=== PATIENT | female | born 1990 | race Caucasian/White ===

== ENCOUNTER 2017-05-20 08:58 | Emergency (ER) | payer SELFPAY ==
[~2017-05-20 08:58] MED LIST: Sodium Chloride 0.9% 1,000 ML BAG ONE
[2017-05-20] MEDS ORDERED: Metoclopramide HCl 10 MG/2 ML VIAL ONE (10:00)
[2017-05-20] MEDS ORDERED: Ondansetron HCl/PF 4 MG/2 ML Vial ONE (10:00)
[2017-05-20 10:18] LABS: ALT (SGPT) 6 U/L (8-55); AST (SGOT) 11 U/L (5-34); Albumin 2.9 g/dL (3.5-5.0); Alkaline Phosphatase 71 U/L (40-150); Anion Gap 16 mmol/L (10-20); BUN (Urea Nitrogen) 7 mg/dL (7.0-18.7); Bilirubin, Total 0.3 mg/dL (0.2-1.2); Calc. Creatinine Clearance 0 mL/min (70-130); Calcium 8.7 mg/dL (7.8-10.44); Carbon Dioxide 20 mmol/L (22-29); Chloride 105 mmol/L (98-107); Estimated GFR-MDRD Greater than 90; Globulin 3.2 g/dL (2.4-3.5); Glucose 101 mg/dL (70-105); Potassium 3.7 mmol/L (3.5-5.1); Protein, Total 6.1 g/dL (6.0-8.3); Sodium 137 mmol/L (136-145)
--- NOTE | 2017-05-20 10:20 | RAD ---
PORTABLE CHEST 1 VIEW: Date: 05/20/17 Time: 0953 hours HISTORY: Severe abdominal pain. FINDINGS: Comparison made with exam of 11/01/13. The heart size is normal. The lungs are well expanded without focal areas of consolidation, pneumoth orax, or pleural effusions. IMPRESSION: No acute process. POS: [facility]
[2017-05-20 10:25] LABS: Eosinophils 2 % (0-10); Hemoglobin 12.7 g/dL (12.0-16.0); Lymphocytes 13 % (21-51); MDiff Complete? YES; Mean Corpuscular HGB CONC 34.9 g/dL (32.0-36.0); Mean Corpuscular Volume 91.5 fl (81.0-99.0); Mean Platelet Volume 5.7 fL (7.4-10.4); Monocytes 6 % (0-10); Neutrophil 79 % (42-75); PLT Morphology Comment Appears Adequate; Platelet Count 309 thou/uL (130-400); RBC Distribution Width 12.2 % (11.5-14.5); Red Blood Cell (RBC) Count 3.96 mill/uL (4.20-5.40); White Blood Cell (WBC) Count 11.8 thou/uL (4.8-10.8)
[2017-05-20 10:26] LABS: Lipase Less than 4 U/L (8-78)
[2017-05-20 10:32] LABS: BHCG - Serum Negative (NEGATIVE); Pregs Control Background? CLEAR/WHITE (CLR/WHITE); Pregs Control Bar Appear? YES (CONTROL BAR)
[2017-05-20] MEDS ORDERED: metroNIDAZOLE 500 MG/100 ML BAG ONE (10:37)
[2017-05-20] MEDS ORDERED: Clindamycin/D5W 600 mg/50 ml Premix Bag ONE (11:17)
[2017-05-20 12:05] LABS: Acetaminophen Less than 6.0 mcg/mL (10.0-30.0); Alcohol Less than 10 mg/dL (Less than 10); Salicylate Less than 8.0 mg/dL (15.0-30.0)
[2017-05-20 12:10] LABS: Cocaine Metabolite Screen Not Detected (NotDetected); Phencyclidine (PCP) Not Detected (NotDetected); THC/Cannabinoid Screen Detected (NotDetected)
[2017-05-20 12:11] LABS: Amphetamine Detected (NotDetected); Barbiturates Screen Not Detected (NotDetected); Benzodiazepine Screen Detected (NotDetected); Medtox Control Line Valid? VALID (VALID); Methadone Not Detected (NotDetected); Methamphetamine Detected (NotDetected); Opiate Screen Detected (NotDetected); Oxycodone Screen Not Detected (NotDetected); Tricyclic Screen Not Detected (NotDetected)
[2017-05-20 13:09] LABS: Clarity Hazy (Clear); Leukocyte Moderate (Negative); Nitrite Negative (Negative); Protein, Urine (Dipstick) Negative (Neg-Trace)
[2017-05-20 13:10] LABS: Bilirubin Negative (Negative); Blood, Urine Trace (Negative); Glucose, Urine (Dipstick) Negative (Negative); Urobilinogen 0.2 mg/dL (0.2-1.0)
[2017-05-20 13:14] LABS: RBC/HPF 0-3 HPF (0-3)
[2017-05-20 13:15] LABS: Bacteria/HPF Rare-Few HPF (None Seen)
== END 2017-05-20 13:43 | disposition short-term general hospital (02) ==
LOC: MADERS 08:58
DX: A41.9 Sepsis, unspecified organism (principal); K52.9 Noninfective gastroenteritis and colitis, unspecified; N39.0 Urinary tract infection, site not specified; F19.10 Other psychoactive substance abuse, uncomplicated; F17.200 Nicotine dependence, unspecified, uncomplicated
CPT/HCPCS: 36415; 71010; 80053; 80306; 80307; 81001; 82150; 83605; 83690; 84703; 85025; 86140; 87040; 87077; 87086; 96361; 96365; 96367; 96375; J2270; J2405; J2765; J3370; J3490; J7050

== ENCOUNTER 2019-11-09 16:09 | Emergency (ER) | payer SELFPAY ==
[2019-11-09] MEDS ORDERED: Azithromycin 250 MG TAB ONE (16:43)
[2019-11-09] MEDS ORDERED: traMADol HCl 50 MG TAB ONE ×2 (16:43)
== END 2019-11-09 16:51 | disposition home or self-care (01) ==
LOC: MADERS 16:09
DX: K04.7 Periapical abscess without sinus (principal); K03.81 Cracked tooth; K02.9 Dental caries, unspecified; F17.210 Nicotine dependence, cigarettes, uncomplicated; Z79.899 Other long term (current) drug therapy
CPT/HCPCS: 99282

== ENCOUNTER 2022-04-15 08:26 | Emergency (ER) | payer SELFPAY ==
[2022-04-15] MEDS ORDERED: Sodium Chloride 0.9% 1,000 ML ONE (09:06)
[2022-04-15 09:19] LABS: #Basophils 0.1 thou/uL (0.0-0.2); #Eosinphils 0.4 thou/uL (0.0-0.7); #Lymphocytes 1.5 thou/uL (1.20-3.40); #Monocytes 0.6 thou/uL (0.11-0.59); #Neutrophils 7.3 thou/uL (1.40-6.50); %Basophils 1.1 % (0.0-1.0); %Eosinophils 4.5 % (0.0-10.0); %Lymphocytes 14.7 % (21.0-51.0); %Monocytes 6.1 % (0.0-10.0); %Neutrophils 73.6 % (42.0-75.0); Hemoglobin 12.8 g/dL (12.0-16.0); Mean Corpuscular HGB CONC 32.4 g/dL (32.0-36.0); Mean Corpuscular Hemoglobin 28.3 pg (27.0-31.0); Mean Corpuscular Volume 87.3 fL (78.0-98.0); Mean Platelet Volume 6.7 fL (7.4-10.4); Platelet Count 332 thou/uL (130-400); RBC Distribution Width 12.8 % (11.5-14.5); Red Blood Cell (RBC) Count 4.53 mill/uL (4.20-5.40); White Blood Cell (WBC) Count 9.9 thou/uL (4.8-10.8)
[2022-04-15 09:34] LABS: Bilirubin Negative (Negative); Blood, Urine Negative (Negative); Clarity Slightly Cloudy (Clear); Glucose, Urine (Dipstick) Negative (Negative); Ketone, Urine Negative (Negative); Leukocyte Small (Negative); Nitrite Negative (Negative); Protein, Urine (Dipstick) Trace mg/dL (Neg-Trace); Urobilinogen 0.2 mg/dL (Less than 2); pH, Urine 5.5 (5.0-9.0)
[2022-04-15 09:35] LABS: Specific Gravity, Urine 1.028 (1.002-1.036)
[2022-04-15 09:38] LABS: ALT (SGPT) 14 U/L (8-55); AST (SGOT) 15 U/L (5-34); Albumin 3.7 g/dL (3.5-5.0); Alkaline Phosphatase 55 U/L (40-110); Anion Gap 15 mmol/L (10-20); BUN (Urea Nitrogen) 14 mg/dL (7.0-18.7); Bilirubin, Total 0.3 mg/dL (0.2-1.2); Calc. Creatinine Clearance 0 mL/min (70-130); Calcium 8.8 mg/dL (7.8-10.44); Carbon Dioxide 23 mmol/L (22-29); Chloride 103 mmol/L (98-107); Globulin 3.3 g/dL (2.4-3.5); Glucose 114 mg/dL (70-105); Potassium 3.4 mmol/L (3.5-5.1); Sodium 138 mmol/L (136-145)
[2022-04-15 09:39] LABS: Bacteria/HPF 2+ HPF (None Seen); RBC/HPF 0-3 HPF (0-3); WBC/HPF Greater than 50 HPF (0-3)
[2022-04-15] MEDS ORDERED: cefTRIAXone\\ROCEPHIN 2 GM VIAL ONE (10:09)
[2022-04-15] MEDS ORDERED: Sodium Chloride 0.9% 100 ML ONE (10:09)
[2022-04-16 12:11] LABS: Chlamydia by PCR Not Detected (NotDetected); GC by PCR Not Detected (NotDetected)
== END 2022-04-15 11:41 | disposition home or self-care (01) ==
LOC: MADERS 08:26
DX: O20.0 Threatened abortion (principal); O23.11 Infections of bladder in pregnancy, first trimester; O23.591 Infection of other part of genital tract in pregnancy, first trimester; Z3A.10 10 weeks gestation of pregnancy; O99.331 Smoking (tobacco) complicating pregnancy, first trimester; F17.210 Nicotine dependence, cigarettes, uncomplicated
CPT/HCPCS: 36415; 80053; 81003; 81015; 83605; 84484; 84702; 85025; 86900; 86901; 87077; 87086; 87480; 87491; 87510; 87591; 87660; 93005; 96361; 96365; J0696; J3490; J7050

== ENCOUNTER 2024-07-03 14:02 | Emergency (ER) | payer MEDICAID, SELFPAY ==
[2024-07-03 15:02] LABS: INR-International Normal Ratio 1.1; Prothrombin Time 14.7 sec (12.0-14.7)
[2024-07-03 15:03] LABS: PTT 28.5 sec (22.9-36.1)
[2024-07-03 15:12] LABS: ALT (SGPT) 9 U/L (8-55); AST (SGOT) 15 U/L (5-34); Albumin 3.8 g/dL (3.5-5.0); Alkaline Phosphatase 56 U/L (40-110); Anion Gap 15 mmol/L (10-20); BUN (Urea Nitrogen) 9 mg/dL (7.0-18.7); Bilirubin, Total 0.2 mg/dL (0.2-1.2); Calc. Creatinine Clearance 0 mL/min (70-130); Calcium 8.9 mg/dL (7.8-10.44); Carbon Dioxide 22 mmol/L (22-29); Chloride 102 mmol/L (98-107); Estimated GFR 89; Glucose 128 mg/dL (70-105); Potassium 3.7 mmol/L (3.5-5.1); Protein, Total 6.8 g/dL (6.0-8.3); Sodium 135 mmol/L (136-145)
[2024-07-03 15:13] LABS: Band 10 % (5-11); Hematocrit 43.6 % (36.0-47.0); Hemoglobin 13.9 g/dL (12.0-16.0); Hypochromia SLIGHT = 6-15 cells (100X) (0-5/hpf); Lymphocytes 7 % (21-51); MDiff Complete? YES; Mean Corpuscular HGB CONC 31.8 g/dL (32.0-36.0); Mean Corpuscular Hemoglobin 29.6 pg (27.0-31.0); Mean Platelet Volume 5.7 fL (7.4-10.4); Monocytes 8 % (0-10); Neutrophil 75 % (42-75); Platelet Adequacy Comment Appears Adequate; Platelet Count 306 10x3/uL (130-400); RBC Distribution Width 12.7 % (11.5-14.5); Red Blood Cell (RBC) Count 4.69 mill/uL (4.20-5.40); White Blood Cell (WBC) Count 11.4 10x3/uL (4.8-10.8)
[2024-07-03 15:32] LABS: Bilirubin Small (Negative); Blood, Urine Large (Negative); Glucose, Urine (Dipstick) Negative (Negative); Ketone, Urine Trace mg/dL (Negative); Leukocyte Negative (Negative); Nitrite Negative (Negative); Protein, Urine (Dipstick) 100 mg/dL (Neg-Trace); Urobilinogen 0.2 mg/dL (Less than 2)
[2024-07-03 15:34] LABS: Clarity Bloody (Clear)
[2024-07-03 15:36] LABS: Bacteria/HPF Rare-Few HPF (None Seen); CAUTI Indications for Culture Pregnancy; RBC/HPF Greater than 50 HPF (0-3); Specific Gravity, Urine 1.031 (1.002-1.036); Squamous Epithelial 0-3 HPF (0-3); WBC/HPF 0-3 HPF (0-3)
[2024-07-03 15:37] LABS: Urine Culture Reflex Yes Yes
== END 2024-07-03 16:05 | disposition home or self-care (01) ==
LOC: MADERS 14:02
DX: O03.4 Incomplete spontaneous abortion without complication (principal); Z87.891 Personal history of nicotine dependence
CPT/HCPCS: 80053; 81001; 84702; 85025; 85610; 85730; 87086; 99284